=== PATIENT | male | born 1975 | race Caucasian/White ===

== ENCOUNTER 2019-04-28 09:50 | Outpatient (CLI) | payer SELFPAY ==
--- NOTE | 2019-04-28 15:53 | DI.RAD_ITS ---
SYMPTOM/DIAGNOSIS: SHOULDER INJURY. M25.511 PAIN IN RT SHOULDER FALL, W19.XXXA RIGHT SHOULDER: There is no evidence of a fracture or dislocation.
== END 2019-04-28 10:10 ==
DX: S46.901A Unspecified injury of unspecified muscle, fascia and tendon at shoulder and upper arm level, right arm, initial encounter (principal); W19.XXXA Unspecified fall, initial encounter
CPT/HCPCS: 73030

== ENCOUNTER 2022-05-30 13:22 | Outpatient (CLI) | payer BC, SELFPAY ==
--- NOTE | 2022-05-30 13:15 | DI.RAD_ITS ---
Exam(s) XR SHOULDER RT COMPLETE 2+V EXAM: XR SHOULDER RT COMPLETE 2+V CLINICAL HISTORY: right shoulder arthropathy. TECHNIQUE: 2D digital imaging was performed of the right shoulder. Two images were obtained. AP an d axillary views were obtained. COMPARISON: CR XR shoulder RT complete 2+V from 04/28/2019 FINDINGS: BONES: No acute fracture is present. No bony destructive lesion is seen. JOINTS: No dislocation present. SOFT TISSUE: Normal. IMPRESSION: Unremarkable radiographs of the right shoulder. DATA REPOSITORY: RADIATION DOSE DELIVERED:
== END 2022-05-30 13:23 | disposition home or self-care (01) ==
LOC: DIORS 13:22
PROVIDERS: Visit Provider Student in an Organized Health Care Education/Training Program
DX: M12.811 Other specific arthropathies, not elsewhere classified, right shoulder (principal)
CPT/HCPCS: 73030

== ENCOUNTER 2022-06-20 01:51 | Outpatient (CLI) | payer BC, SELFPAY ==
--- NOTE | 2022-06-20 06:30 | DI.MRI_ITS ---
Exam(s) MR UPPER JOINT RT WO EXAM: MR UPPER JOINT RT WO CLINICAL HISTORY: persistent pain,weakness,SLAP LESION RT SHOULDER, S43.431A. TECHNIQUE: Multiplanar multisequence MRI was performed. COMPARISON: CR XR SHOULDER RT COMPLETE 2+V from 05/30/2022 FINDINGS: The examination is limited due to patient motion artifact. BONES: There is no fracture or contusion pattern. JOINTS: [id number] degenerative changes are seen at the acromioclavicular joint. The glenohume ral joint is normal. TENDONS: Supraspinatus: Hyperintense signal seen in the supraspinatus tendon at the articular surface consiste nt with a partial tear. There is underlying tendinosis of the supraspinatus tendon noted. Infraspinatus: Unremarkable. Subscapularis: There is tendinosis of the subscapularis tendon. There is hyperintense signal seen at the superior aspect of the subscapularis tendon suspicious for partial tear. [place]: Unremarkable. Biceps and [place]: Unremarkable. MUSCLES: Unremarkable. GLENOID LABRUM: There is hyperintense signal seen in the posterior superior labrum posterior to the b iceps anchor consistent with a tear. The remainder of the labrum is grossly unremarkable. SOFT TISSUES: Unremarkable. LIGAMENTS: Unremarkable. OTHER: Subacromial and subdeltoid bursae are unremarkable. IMPRESSION: 1. The examination is limited due to patient motion artifact. 2. Tendinosis of the supraspinatus tendon with a partial articular surface tear at the insertion site . 3. Tendinosis of the subscapularis tendon. Findings suspicious for partial tear of the superior subs capularis tendon at its insertion site. 4. Hyperintense signal seen in the posterior superior labrum is a consistent with a tear. 5. [id number] degenerative changes of the acromioclavicular joint. DATA REPOSITORY:
== END 2022-06-20 02:11 ==
LOC: DI 01:51
PROVIDERS: Visit Provider Student in an Organized Health Care Education/Training Program
DX: M19.011 Primary osteoarthritis, right shoulder (principal); S43.431A Superior glenoid labrum lesion of right shoulder, initial encounter; X58.XXXA Exposure to other specified factors, initial encounter
CPT/HCPCS: 73221

== ENCOUNTER 2022-10-19 10:16 | Day surgery (SDC) | payer BC, SELFPAY ==
[2022-10-19] VITALS (8 sets, daily range): BP systolic 126–155; BP diastolic 74–107; PULSE 65–90; RESP 16–22; TEMP 36.3–36.6; O2SAT 83–97; BMI 49.8
--- NOTE | 2022-10-19 12:02 | W.ANESPRE ---
General Info Date of Service Date Performed: 10/19/22 Height: 5 ft 11 in Weight: 162 kg Body Mass Index (BMI): 49.8 Surgical Procedure: Operation Date: 10/19/22 12:40 Proposed Procedure Side Surgeon p Shoulder Possible Rotator Cuff Arthroscopic w/Extensive Debridement, Biceps Tenodesis, Subacromial Decompression Right Perry Suh MD Meds Allergies and Home Medications Allergies Allergy/AdvReac Type Severity Reaction Status Date / Time cefaclor [From [facility]] Allergy Intermediate pt is Unverified 10/19/22 10:51 unsure, reports childhood allergy Home Medication Medication Instructions Recorded No Daily Medications 05/04/11 ascorbic acid (vitamin C) 1,000 mg 1,000 mg PO HS 09/26/22 capsule acetaminophen 500 mg tablet 1,000 mg PO Q6H PRN 10/19/22 (Tylenol Extra Strength) ibuprofen 600 mg tablet 600 mg PO TID 10/19/22 Current Visit Medications: Current Medications Generic Name Dose Route Start Last Admin Trade Name Freq PRN Reason Stop Dose Admin Ringer's Solution 1,000 mls @ 30 mls/hr 10/19/22 06:00 IV 11/17/22 23:59 INFUSION [facility] IV Miscellaneous Supplies 1 each 10/19/22 06:00 Iv Access IV 11/17/22 23:59 DIRECTED EMA Oxycodone HCl 0 mg 10/19/22 07:20 Oxycodone 5 Mg Tab PO Q3H PRN PRN Pain Sodium Chloride 0 ml 10/19/22 06:00 Normal Saline Flush 10 Ml Syr IV 11/17/22 23:59 PRN PRN Sodium Chloride 0 ml 10/19/22 06:00 Normal Saline 10 Ml Vial IJ 11/17/22 23:59 DIRECTED PRN Sterile Water 0 ml 10/19/22 06:00 Water,Injection,Sterile 10 Ml Vial IJ 11/17/22 23:59 DIRECTED PRN PFSH Active Problems Active Problems: Problem Status Onset Code SLAP lesion of right shoulder S43.431A Medical History Medical History (Updated 10/19/22 @ 10:54 by Amisha Moyer) History of trigger finger Impingement syndrome of right shoulder Surgical History Surgical History leg cyst right Tobacco Smoking/Tobacco Use Status: Current every day Tobacco Type: smokeless tobacco Alcohol Alcohol Intake: never Substance Use Substance use: Never Substance use type: does not use Vital Signs and Lab Results Vital Signs Most Recent Vital Signs in EMR: Most Recent Vital Signs Temp Pulse Resp BP Pulse Ox 36.6 C 90 18 155/107 H 97 10/19/22 11:03 10/19/22 11:03 10/19/22 11:03 10/19/22 11:03 10/19/22 11:03 Lab Results Blood Type / Crossmatch: No Data to Display Complete Blood Count: No Data to Display Complete Metabolic Panel: No Data to Display Liver Function Panel: No Data to Display Coagulation Panel: No Data to Display Cardiac Panel: No Data to Display Arterial Blood Gas: No Data to Display Venous Blood Gas: No Data to Display Pancreas Panel: No Data to Display Thyroid Panel: No Data to Display Infectious Disease: No Data to Display Blood Cultures: No Data to Display Toxicology Panel: No Data to Display Anesthesia Assessment and Plan Anesthesia History Personal History: No History of General Anesthesia Family History: No Family History of Anesthesia Complications Exercise Tolerance Exercise Tolerance: Metabolic Equivalents>4 Pertinent Negatives Pertinent Negatives: No Symptoms of GERD, No Major Cardiovascular Symptoms or Complaints, No Major Pulmonary Symptoms or Complaints and No History of CVA/TIA Cardiac & Pulmonary Exam Cardiac Exam: Normal S1/S2 Heart Sounds Pulmonary Exam: Clear Bilateral Breath Sounds Cardiac and Pulmonary Comment:: Snores, never had sleep study Implantable Cardiac Device Does patient have a Pacemaker or an ICD?: No Airway Exam Known Difficult Airway: No Mallampati Class: 1 Mouth Opening: Normal (> 3cm) Thyromental Distance: Greater than 3 cm Neck Range of Motion: Full ROM Neck Circumference: Normal Teeth Condition: Normal Dentition ASA Classification ASA Score: ASA 3 Emergency Case?: No NPO Status NPO Status: NPO Clears >2 hours, Solids >8 hours Anesthesia Plan Resuscitation Status: Full Code Anesthesia Technique: General Anesthesia Airway Planned: Endotracheal Tube Pain Management: Surgeon and patient request nerve block Monitors Used: Standard Monitors Preoperative Comments:: Chews tobacco, none since 8pm last night
[2022-10-19] MEDS: Lactated Ringers 1,000 ML 30 ML IV (12:15)
--- NOTE | 2022-10-19 14:05 | W.ANESNERVE ---
Nerve Block Single Injection Procedure Date and Time Date Performed: 10/19/22 Procedure Start: 13:48 Location Where Procedure Performed Procedure Location: Day Surgery Unit Reason Performed: Postoperative Analgesia Requesting Provider: Perry Suh Timeout Performed Timeout Performed: Yes Monitoring Used ECG, Blood Pressure, SpO2 and See EMR for corresponding vital signs Sterility Sterility: Hand Hygiene, Surgical Cap, Surgical Mask, Sterile Gloves, Sterile Drape/Sheet and Chlorhexidine Sedation Given During Procedure Sedation Given (Indicate Dose Given): Versed IV Dose:: 2 mg Patient Mental Status Patient Mental Status: Sedate with meaningful communication Nerve Block 1st Nerve Block: Laterality: Right Block Type: Interscalene Needle / Catheter Used: 100mm SonoPlex II Local Anesthetic Bolus (Indicate Dose Given): Lidocaine used for local infiltration of skin, Injected in 3-5ml increments after negative blood aspiration and Bupivacaine 0.5% Dose:: 15 ml Additives (Indicate Dose Given): Precedex Dose:: 80 mcg Ultrasound: Sterile probe cover and gel used Ultrasound Image Saved?: Yes Nerve Stimulator: Not Used Paresthesia: None Procedure Tolerated: No Complications and Patient tolerated well Procedure Outcome: Successful Performed By: Ines Ashley
[2022-10-19] MEDS: ceFAZolin 2 GM/50 ML BAG IVPB (14:18)
--- NOTE | 2022-10-19 15:41 | W.PM.DSUDISC ---
Date of service: 10/19/22 Time of Service: 15:00 Discharge Plan Disposition Patient Disposition: HOME Condition: Good Discharge Details Attending Provider: Perry Suh Primary Care Provider: Fahad Boudreaux Home Meds and New Rx's Prescriptions: New aspirin 81 mg tablet,delayed release (DR/EC) 81 mg PO DAILY 7 Days Qty: 7 0RF naproxen 250 mg tablet 250 - 500 mg PO BID PRNQty: 30 0RF Rx Instructions: take with a meal oxycodone 5 mg tablet 5 - 10 mg PO Q4H MDD 30 mg PRN (Reason: moderate to severe pain) Qty: 12 0RF Continued ascorbic acid (vitamin C) 1,000 mg capsule 1,000 mg PO HS NO DAILY MEDICATIONS NONE acetaminophen [Tylenol Extra Strength] 500 mg Tablet 1,000 mg PO Q6H PRN Discontinued ibuprofen 600 mg Tablet 600 mg PO TID Discharge Instructions Additional Instructions: Surgery: Right shoulder arthroscopy with biceps tenodesis, extensive debridement, and subacromial decompression. Activity: You should gradually increase range of motion motion and use of your shoulder. You may use your shoulder for all regular activities while protecting biceps repair. Avoid any weighted elbow flexion or resisted supination for 6-8 weeks. No heavy lifting, reaching overhead, or lifting away from body for approximately 2-3 months. You may use the sling whenever you are out of the house for a few weeks. At home it is best to remove the sling and rest the arm on a pillow at your side or support the operative side with your other hand. A physical therapy prescription will be sent electronically to start in about 3 weeks. Prescriptions: Aspirin 81 mg take 1 daily to prevent a blood clot for 7 days Naproxen 250 mg take 1-2 every 12 hours with a meal as needed for moderate pain Oxycodone 5 mg take 1-2 every 4-6 hours as needed for severe pain You may use yxzz-heu-hkauril Tylenol (acetaminophen) as needed for mild pain. These pain medications may be taken all at once or in different combinations as needed. Also, recommend Colace (docusate) as a stool softener as surgery and pain medicine cause constipation. You may try zoee-ttn-jwjuzkt diphenhydramine (Benadryl) 25-50 mg nightly as a sleep aid Dressings: Remove shoulder bandage after 3 days. Leave the sticky Steri-Strips in place until they fall off or remove them after you shower. Cover the incisions with Band-Aids or leave them open to air. You may shower after 5 days. Follow-up: 10-[address] Suh You may take off the leg compression stockings this evening at home. You may also leave them on a few days longer if you have a history of leg swelling or edema. Let us know right away if you develop any redness, drainage, fevers, chest pain, or trouble breathing. Do not drink alcohol or drive for at least 24 hours after anesthesia. Please call the office during business hours with any questions or concerns. DS: Diagnosis Discharge Diagnosis (1) SLAP lesion of right shoulder: Status: Acute
[2022-10-19] MEDS: EPINEPHrine 30 MG/30 ML VIAL (15:48)
--- NOTE | 2022-10-19 15:58 | ROE_ITS ---
Date of service: 10/19/22 Time of Service: 15:00 Operative Note Operative Note DATE OF PROCEDURE: 10/19/22 PRE-OP DIAGNOSIS: Right: 1. Rotator cuff tear 2. SLAP tear/ tendinopathy 3. Impingement POST-OP DIAGNOSIS: same PROCEDURE: Right: 1. Arthroscopic biceps tenodesis, CPT# 93649. This involved arthroscopically suturing and reattaching the long head of the biceps tendon to the proximal humerus at the superior margin of the bicipital groove with a screw at the correct tension. 2. Extensive debridement, CPT# 41968. This involved using arthroscopic hand instruments, power instruments, and radiofrequency instruments to release the long head of the biceps tendon and debride areas of labral tearing, synovitis, and chondromalacia about the biceps groove within the glenohumeral joint anteriorly, superiorly and posteriorly. 3. Subacromial decompression with partial acromioplasty, CPT# 73700. This involved using arthroscopic power instruments and a radiofrequency wand to complete a bursectomy and smooth the undersurface of the acromion. The training assistant was medically required in order to help assist in techniques above, which require positioning the arm, holding the arthroscope, and manipulating multiple instruments and sutures at the same time. This cannot be done without the help of an experienced training assistant. SURGEON: Perry Suh [employer] SAL[employer] REPRESENTATIVE: Yoselyn Lockwood ANESTHESIA TYPE: General LMA/ETT and Primary Nerve Block Refer to Anesthesia Record ESTIMATED BLOOD LOSS: 10 PATHOLOGY: none sent COMPLICATIONS: None Patient was transported to: PACU Patient's condition: stable Implants: Arthrex: 4.75mm SwiveLocks x 1 Indications: The patient was diagnosed with the above conditions and appropriately indicated for surgical intervention. Please see complete medical record for details. Findings: Exam under anesthesia: Full range of motion, no instability Glenohumeral joint: Significant anterior, superior, and posterior synovitis. 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 Degenerative type labral tearing anteriorly and SLAP tear. Partial articular supraspinatus tearing with minimal footprint involvement. Intact subscapularis. Subacromial space: Moderate bursitis. Mild central lateral supraspinatus thinning without any significant bursal rotator cuff tear. Procedure Description: In the operating room, general anesthesia was induced. Bilateral shoulders were examined. The patient was positioned in the beachchair position. All bony prominences were well-padded. Preoperative antibiotics were administered. The shoulder was prepped and draped in the usual sterile fashion. The correct patient, procedure, and side of the procedure were all verified prior to incision. Starting through the posterior portal a standard complete diagnostic arthroscopy was performed of the glenohumeral joint including inspection of the long head of the biceps, anterior and superior labrum, subscapularis tendon, supraspinatus and infraspinatus tendons, and axillary recess. The glenoid and humeral head cartilage as well as the posterior labrum were inspected from an anterior viewing portal. Significant findings and interventions noted above. An all-arthroscopic suprapectoral biceps tenodesis was performed through an anterior portal using a Loop N Tack method with a SutureTape FiberLink cinched around and through the tendon. The biceps was tenotomized from the labrum and fixated with a suture anchor at the superior margin of the bicipital groove. The knotless repair suture was then shuttled around the tendon and through the anchor for additional security. Starting through the posterior portal, the arthroscope was directed into the subacromial space. A lateral 50 yard line lateral portal was omitted. Anterior portal was redirected into the subacromial space. A combination of power instruments and a radiofrequency ablator were used to debride bursitis anteriorly, posteriorly, and laterally as well as expose and smooth bone spurring on the undersurface of the acromion. The coracoacromial ligament was partially released. The bursectomy was completed and the rotator cuff was thoroughly inspected with findings noted above. The shoulder was drained of arthroscopic fluid. All portal sites were copiously irrigated. These incisions were closed using 3-0 Monocryl in a buried fashion and then covered with Mastisol, Steri-Strips, Xeroform, dry gauze, and ABDs. The dressings were covered and secured with Medipore tape. The operative extremity was placed into a sling for immobilization. The patient awoke from anesthesia without complication and was transferred to the recovery room in a stable condition.
--- NOTE | 2022-10-19 16:38 | W.ANESPOSTOP ---
Postoperative Evaluation Date, Time and Location Date Performed: 10/19/22 Time Performed: 16:38 Patient Location: Day Surgery Unit Vital Signs Most Recent Imported Vital Signs: Most Recent Vital Signs Temp Pulse Resp BP Pulse Ox 36.3 C L 65 16 138/94 H 94 10/19/22 16:18 10/19/22 16:18 10/19/22 16:18 10/19/22 16:18 10/19/22 16:18 Pain Score Most Recent Pain Score: Most Recent Pain Score Pain Level 0 10/19/22 16:18 Assessment Mental Status: Awake (Alert & Oriented to Patient Baseline) Airway and Respiratory Function: Patent airway with normal (patient baseline) respiratory exam Cardiovascular Function: Hemodynamically Stable Hydration Status: Adequately Hydrated Nausea & Vomiting: No Nausea or Vomiting Pain: Pt. Denies Any Pain Peripheral Nerve Block: Regional nerve block not resolved at time of post operative discharge
== END 2022-10-19 17:17 | disposition home or self-care (01) ==
PROVIDERS: PCP Nurse Practitioner Family; Visit Provider Student in an Organized Health Care Education/Training Program
PROC: (CPT 29827; principal; 2022-10-19 12:30)
DX: S43.431A Superior glenoid labrum lesion of right shoulder, initial encounter (principal); M75.41 Impingement syndrome of right shoulder; M65.811 Other synovitis and tenosynovitis, right shoulder; M94.211 Chondromalacia, right shoulder; M75.51 Bursitis of right shoulder; X58.XXXA Exposure to other specified factors, initial encounter
CPT/HCPCS: 29828; 29826; 29823; 76942; J0690; J1100; J2250; J2405; J2704

== ENCOUNTER 2023-12-06 07:43 | Emergency (ER) | payer BC, SELFPAY ==
[2023-12-06] VITALS (36 sets, daily range): BP systolic 105–167; BP diastolic 61–94; PULSE 66–115; RESP 8–30; TEMP 36.4; O2SAT 96–98
--- NOTE | 2023-12-06 07:45 | RT.EKG_ITS ---
APPROVED REPORT Exam: Resting ECG Reason for Exam: Chest pain Patient Location: E HR:111 bpm ECG Measurements Heart Rate 111 AXIS WA 188 P 61 QRSd 91 QRS 79 QT 336 T 18 QTc 457 Conclusion Sinus tachycardia...rate> 99
--- NOTE | 2023-12-06 07:55 | ED.GENADUL_ITS ---
HPI General Date/Time Provider Initiated Documentation: 12/06/23 07:55 . HPI Narrative: Patient presents to the emergency department complaining of several episodes of midsternal chest pressure that has been happening for the last 2 weeks. States that the culprit was when he was applying this no and he was pushing the equipment which was stuck. He thought it was a pulled muscle but then he has been having it frequently without any effort. Today he had it at work and he states he got profusely diaphoretic with his chest pressure. Denies any fever chills denies any shortness of breath. Denies any cough Related Data Home Medications Medication Instructions Recorded Confirmed ascorbic acid (vitamin C) 1,000 mg 1,000 mg PO HS 09/26/22 12/06/23 capsule acetaminophen 500 mg tablet 1,000 mg PO Q6H PRN 10/19/22 12/06/23 (Tylenol Extra Strength) Allergies Allergy/AdvReac Type Severity Reaction Status Date / Time cefaclor [From [facility]] Allergy Intermediate pt is Unverified 12/06/23 07:55 unsure, reports childhood allergy General Stated Complaint: Chest Pain LEX: 3 Review of Systems Narrative: Review of Systems: Constitutional: No fevers, chills, sweats Eye: No recent visual problems ENT: No ear pain, nasal congestion, sore throat Respiratory: No shortness of breath, cough Cardiovascular: No palpitations, syncope Gastrointestinal: No nausea, vomiting, diarrhea Genitourinary: No hematuria Joaquin/Lymph: Negative for bruising tendency, swollen lymph glands Endocrine: Negative for excessive thirst, excessive hunger Musculoskeletal: No back pain, neck pain, joint pain, muscle pain, decreased range of motion Integumentary: No rash, pruritus, abrasions Neurologic: Alert & oriented X 4 Psychiatric: No anxiety, depression Exam Narrative Exam Narrative: Exam; vitals signs as reported above tachycardic hypertensive Constitutional; In no acute distress, afebrile General: cooperative, healthy appearing, comfortable and no acute distress HEENT: Head: normal to inspection, no palpable skull fracture and normocephalic atraumatic Eyes: : appearance normal, both eyes and all related structures EOM intact bilaterally Pupils: PERRL : conjunctiva normal Direct ophthalmoscopy: normal light reflex, normal conjunctiva, normal visual acuity Ears: Normal TM, normal external canal Nose: normal no rhinorreha Neck no JVD, supple non tender Neck: normal visual inspection, full ROM and no lymphadenopathy Chest: normal inspection of the chest Respiratory : normal respiratory effort and able to speak in complete sentences no wheezing no rales Cardio Rate: regular rate, rhythm: regular rhythm normal heart sounds S1 and S2 no murmurs, gallops, or rubs GI : normal to inspection, normal bowel sounds, soft, non tender, non distended, no organomegaly Back/Spine/ no CVA tenderness Thoracic/Lumbar Spine: no tenderness or deformities Skin no rashes or lesions Neuro: patient alert oriented x 4 and no meningeal signs, Cranial Nerves: CN's II-XI intact bilaterally, Cognition: normal cognition, Speech: speech normal, Gait: normal gait, Depp tendon reflexes normal 2+ muscle strength 5/5 bilaterally Extremities, no edema, full range of motion, normal strength Course Vital Signs Vital signs: Vital Signs Temperature 36.4 C L 12/06/23 07:48 Pulse 115 H 12/06/23 07:48 Respiratory Rate 12 12/06/23 07:48 Blood Pressure 164/78 H 12/06/23 07:48 Pulse Oximetry 98 12/06/23 07:48 Temperature 36.4 C L 12/06/23 07:48 Pulse 115 H 12/06/23 07:48 Respiratory Rate 22 12/06/23 07:51 Respiratory Effort Normal, Non-Labored 12/06/23 07:53 Respiratory Depth Normal 12/06/23 07:51 Respiratory Pattern Normal 12/06/23 07:51 Blood Pressure 164/78 H 12/06/23 07:48 Pulse Oximetry 98 12/06/23 07:48 Oxygen Delivery Method Room Air 12/06/23 07:48 Oxygen Flow Rate 0 12/06/23 07:48 Pain Level 6 12/06/23 07:48 Medical Decision Making MDM: Summary: patient whom presented with chest presure and stating he drinks and urinate frequently. His glucose was high so he is most likely a type 2 Diabetic. EKG did not show any abnormality. POCUS echocardiogram was negative and two serial troponins were negative as well. He received IV hydration and will need follow up this week for diabetes control and medication an stress test. Data Review Analysis All the data on this patient was reviewed by me including laboratory and imaging studies as well as bedside studies performed by me Independent review of Studies Imaging as described above normal Lab: two negative tropinins and hyperglycemia Risk Stratification: pt with a mild to moderate heart score and new onset DM who will need follow up this week Differential Diagnosis: 1.atypical Chest pain 2.ACS 3.costochondritis 4.New onset DM 5. Consultants: Shared disposition: pt will follow up tomorrow with PCP Impression: Medical Records Medical records reviewed: Yes I reviewed the patient's medical records. Lab Data Lab results reviewed: Yes I reviewed the patient's lab results. ECG Data Attestation: I personally reviewed and interpreted this ECG (s) as follows: Prior ECG tracings: not available for review Interpretation: Heart rate 111 sinus tachycardia no acute ST-T changes normal axis Quality:SDOH Health Related Social Needs: 2 No Data to Display PFSH All Active Problems (Updated 12/06/23 @ 11:54 by Slade Us MD) Chest pain (Acute) Hyperglycemia (Acute) Sinus tachycardia (Acute) Diabetes mellitus (Chronic) SLAP lesion of right shoulder (Acute) Medical History History of trigger finger Impingement syndrome of right shoulder Surgical History leg cyst right Family History Mother Essential hypertension Father Diabetes Essential hypertension Hyperlipidemia Brother Essential hypertension Grandfather Essential hypertension Grandfather No problems noted. Grandmother No problems noted. Grandmother No problems noted. Social History Smoking/Tobacco Use Status: Current every day Tobacco Type: smokeless tobacco Tobacco: How many years used: 27 Smoking risk assessment performed?: Yes Alcohol Intake: never Drug use: Never Substance use type: does not use Housing: house Current gender identity: male Do you feel safe at home: Yes Do you feel safe in your relationship?: Yes PAWSS Have you Been Recently Intoxicated or Drunk Within the Last 30 days?: No Have you Ever Experienced Previous Episodes of Alcohol Withdrawal?: No Have you ever Experienced Withdrawal Seizures?: No Have you ever Experienced Delirium Tremens(DT)s?: No Have you ever undergone Alcohol Rehabilitation Treatment (i.e, inpt ot outpatient treatment programs)?: No Have you ever Experienced Blackouts?: No Have you ever Combined Alcohol with other Downers within the last 90 days?: No Have you ever Combined Alcohol with any other Substance of Abuse during the last 90 days?: No Positive Blood Alcohol level on Presentation? [PCS.BAL]: No Evidence of Increased Autonomic Activity (i.e. HR>120, tremor, sweating, agitation, nausea)?: No Result: 0 Discharge Plan Disposition Patient Disposition: Home Condition: Stable Discharge Details Clinical Impression: Diabetes mellitus, Sinus tachycardia, Hyperglycemia, Chest pain Primary Care Provider: Fahad Boudreaux ED Provider: Slade Us Home Meds and New Rx's Prescriptions: Continued ascorbic acid (vitamin C) 1,000 mg capsule 1,000 mg PO HS acetaminophen [Tylenol Extra Strength] 500 mg Tablet 1,000 mg PO Q6H PRN Discharge Instructions Instructions: Chest Pain (ED), Diabetic Hyperglycemia (ED) Additional Instructions: if chest pain worsens return to the ER immediately Referrals: Fahad Boudreaux NP [Primary Care Provider] - 3 days Thania Abraham MD [ [facility] STAFF PHYSICIAN] - 1 week Discharge Data Discharge Date/Time-TO BE ENTERED AT DEPARTURE: 12/06/23 11:58 Discharge Physician: Slade Us POCUS Exam (ED) Limited Cardiac Exam DATE OF EXAM: 12/06/23 TIME OF EXAM: 10:10 PROVIDER THAT PERFORMED THE STUDY: Slade Us IS THIS A REPEAT EXAM DURING THIS ENCOUNTER: no REASON FOR EXAM: Chest pain VISUALIZED STRUCTURES: Four Chambers, Left atrium, Left ventricle, LVOT, Right atrium, Right ventricle, Aortic valve, Mitral valve, Interventricular septum and IVC VIEW OBTAINED: Apical 4-Chamber, Parasternal long-axis, Parasternal short-axis and Subxiphoid PERTINENT FINDINGS/IMPRESSION: No apparent abnormalities Exam complete Vital Signs & Lab Results Vital Signs Most Recent Vital Signs: Most Recent Vital Signs Temp Pulse Resp BP Pulse Ox 36.4 C L 85 12 146/87 H 97 12/06/23 07:48 12/06/23 09:01 12/06/23 09:10 12/06/23 09:01 12/06/23 09:10 Point of Care Results Nursing Point of Care Results: 2 No Data to Display Lab Results 12/06/23 08:15 12/06/23 08:15 Blood Type / Crossmatch: 2 No Data to Display Complete Blood Count: 2 White Blood Count 8.11 10^3/uL (4.4-10.8) 12/06/23 08:15 Red Blood Count 5.01 10^6/uL (4.36-5.78) 12/06/23 08:15 Hemoglobin 15.3 g/dL (13.5-17.5) 12/06/23 08:15 Hematocrit 45.1 % (40.0-50.0) 12/06/23 08:15 Platelet Count 273 10^3/uL (130-400) 12/06/23 08:15 Complete Metabolic Panel: 2 Sodium 137 mmol/L (136-145) 12/06/23 08:15 Potassium 3.8 mmol/L (3.5-5.1) 12/06/23 08:15 Chloride 100 mmol/L (98-107) 12/06/23 08:15 Carbon Dioxide 29.1 mmol/L (21.0-32.0) 12/06/23 08:15 BUN 14 mg/dL (7-18) 12/06/23 08:15 Creatinine 1.0 mg/dL (0.70-1.30) 12/06/23 08:15 Est GFR (CKD-EPI 2020) 92.84 (mL/min/1.73m2) 12/06/23 08:15 Magnesium 1.9 mg/dL (1.8-2.4) 12/06/23 08:15 Calcium 8.9 mg/dL (8.5-10.1) 12/06/23 08:15 Albumin 3.7 g/dL (3.4-5.0) 12/06/23 08:15 Glucose 287 mg/dL (74-106) H 12/06/23 08:15 Liver Function Panel: 2 Alanine Aminotransferase (ALT/SGPT) 24 U/L (16-63) 12/06/23 08: 15 Aspartate Amino Transf (AST/SGOT) 12 U/L (15-37) L 12/06/23 08: 15 Coagulation Panel: 2 D-Dimer 465 ng/mlFEU (<500) 12/06/23 08:15 Cardiac Panel: 2 Troponin I < 50 ng/L (< or =60) 12/06/23 NT-Pro-B Natriuret Pep 50 pg/mL (<300) 12/06/23 Arterial Blood Gas: 2 No Data to Display Venous Blood Gas: 2 No Data to Display Pancreas Panel: 2 No Data to Display Thyroid Panel: 2 No Data to Display Infectious Disease: 2 No Data to Display Blood Cultures: 2 No Data to Display Toxicology Panel: 2 No Data to Display
--- NOTE | 2023-12-06 08:00 | DI.RAD_ITS ---
Exam(s) XR CHEST 2V PA LATERAL EXAM: XR CHEST 2V PA LATERAL CLINICAL HISTORY: chest pain TECHNIQUE: 2D digital imaging was performed. COMPARISON: No exams were available for comparison FINDINGS: HEART: Normal size. Aorta: Not dilated. PULMONARY VASCULATURE: Normal. LUNGS: Clear. PLEURAL SPACE: No pleural effusion or pneumothorax. BONE:Unremarkable for age. Soft tissues: Unremarkable. IMPRESSION: No acute abnormality. DATA REPOSITORY: RADIATION DOSE DELIVERED:
[2023-12-06 08:32] LABS: Abs Immature Grans 0.04 10^3/uL (0.0-0.06); Absolute Basophil Count 0.06 10^3/uL (0.0-0.2); Absolute Eosinophil Count 0.27 10^3/uL (0.0-0.7); Absolute Lymphocyte Count 1.75 10^3/uL (1.2-3.4); Absolute Monocyte Count 0.89 10^3/uL (0.1-0.8); Basophils % 0.7; Eosinophils % 3.3; HCT 45.1 % (40.0-50.0); HGB 15.3 g/dL (13.5-17.5); Immature Grans % 0.5; Lymphocytes % 21.6; MCH 30.5 pg (27.0-33.0); MCHC 33.9 % (32.0-36.0); MCV 90 fL (80-95); MPV 10.7 fL (8.0-11.0); Neutrophils % 62.9; Platelet Count 273 10^3/uL (130-400); RBC 5.01 10^6/uL (4.36-5.78); RDW 13.8 % (11.8-14.1); RDW-SD 45.8 fL; WBC 8.11 10^3/uL (4.4-10.8)
[2023-12-06 08:58] LABS: ALT 24 U/L (16-63); AST 12 U/L (15-37); Albumin 3.7 g/dL (3.4-5.0); Alkaline Phosphatase 98 U/L (46-116); Anion Gap 7.9 mmol/L (3-11); BUN 14 mg/dL (7-18); Bilirubin, Total 0.4 mg/dL (0.2-1.0); CO2 29.1 mmol/L (21.0-32.0); Calcium 8.9 mg/dL (8.5-10.1); Chloride 100 mmol/L (98-107); Estimated GFR 92.84 (mL/min/1.73m2); Glucose 287 mg/dL (74-106); Magnesium 1.9 mg/dL (1.8-2.4); NT-proBNP 50 pg/mL (<300); Potassium 3.8 mmol/L (3.5-5.1); Sodium 137 mmol/L (136-145); Total Protein 8.1 g/dL (6.4-8.2); Troponin I < 50 ng/L (< or =60)
[2023-12-06 09:05] LABS: D-Dimer 465 ng/mlFEU (<500)
[2023-12-06] MEDS: Normal Saline 1,000 ML 1000 ML IV (09:49)
[2023-12-06 11:22] LABS: Troponin I < 50 ng/L (< or =60)
== END 2023-12-06 11:58 | disposition home or self-care (01) ==
PROVIDERS: Emergency Provider Emergency Medicine Emergency Medical Services; PCP Nurse Practitioner Family
DX: R07.9 Chest pain, unspecified (principal); R42 Dizziness and giddiness; F17.210 Nicotine dependence, cigarettes, uncomplicated
CPT/HCPCS: 80053; 93005; 93308; 96360; 99284; 71046; 83735; 83880; 84484; 85025; 85379; 93010

== ENCOUNTER 2023-12-21 02:47 | Outpatient (CLI) | payer BC, SELFPAY ==
[2023-12-21 10:25] LABS: Hemoglobin A1C 6.4 % (<5.7)
[2023-12-21 10:45] LABS: ALT 29 U/L (16-63); AST 13 U/L (15-37); Albumin 3.9 g/dL (3.4-5.0); Alkaline Phosphatase 84 U/L (46-116); Anion Gap 6.3 mmol/L (3-11); BUN 12 mg/dL (7-18); Bilirubin, Total 0.5 mg/dL (0.2-1.0); CO2 30.7 mmol/L (21.0-32.0); Calcium 9.2 mg/dL (8.5-10.1); Calculated LDL 146 mg/dL (<100); Chloride 100 mmol/L (98-107); Cholesterol 223 mg/dL (<200); Estimated GFR 92.84 (mL/min/1.73m2); Glucose 134 mg/dL (74-106); HDL Cholesterol 53 mg/dL (40-60); Potassium 4.2 mmol/L (3.5-5.1); Sodium 137 mmol/L (136-145); Total Protein 8.2 g/dL (6.4-8.2); Triglyceride 120 mg/dL (<150)
[2023-12-21 19:10] LABS: Hepatitis C Ab w Rflx HCV PCR Negative (Negative)
[2023-12-21 19:14] LABS: HIV-1/2 Ag & Ab Screen Negative (Negative)
== END 2023-12-21 02:48 | disposition home or self-care (01) ==
PROVIDERS: PCP Nurse Practitioner Family; Visit Provider Nurse Practitioner Family
DX: E11.9 Type 2 diabetes mellitus without complications (principal); R73.9 Hyperglycemia, unspecified; Z13.220 Encounter for screening for lipoid disorders; Z11.4 Encounter for screening for human immunodeficiency virus [HIV]; Z11.59 Encounter for screening for other viral diseases
CPT/HCPCS: 36415; 80053; 80061; 86803; 87389; 83036